=== PATIENT | male | born 1985 | race Two or more races ===

== ENCOUNTER 2019-07-05 11:35 | Emergency (ER) | payer MEDICAID, OTHER ==
[~2019-07-05] VITALS: Ht 172.7 cm; Wt 83.9 kg
[2019-07-05 11:44] VITALS: BP 141/97
== END 2019-07-05 13:45 | disposition left against medical advice (07) ==
LOC: EDBD 11:35 → EDSEX 11:40 → ER 11:40
DX: R10.13 Epigastric pain (principal)